=== PATIENT | male | born 1995 | race Caucasian/White ===

== ENCOUNTER 2022-06-11 21:43 | Emergency (ER) | payer BC, OTHER ==
[~2022-06-11] VITALS: Ht 193 cm; Wt 97.3 kg
[2022-06-11] MEDS ORDERED: LIDOCAINE 1% 10 ML VIAL SQ ONE (23:30)
[2022-06-11] MEDS ORDERED: BACITRACIN 0.9 GM PACKET OINTMENT TP ONE (23:30)
[2022-06-12] MEDS ORDERED: CIPROFLOXACIN HCL 250 MG TABLET PO ONE (00:30)
[2022-06-12] MEDS ORDERED: CIPR500T10 PO (00:32)
[2022-06-12 00:35] VITALS: BP 132/84
== END 2022-06-12 01:23 | disposition home or self-care (01) ==
LOC: EMS 21:43
DX: S00.431A Contusion of right ear, initial encounter (principal); F17.210 Nicotine dependence, cigarettes, uncomplicated; Z98.890 Other specified postprocedural states; X58.XXXA Exposure to other specified factors, initial encounter; Y93.89 Activity, other specified; Y92.89 Other specified places as the place of occurrence of the external cause; Y99.8 Other external cause status
CPT/HCPCS: 69000; 99283; 87205; 87075; 87070; J3490